=== PATIENT | female | born 1975 | race Caucasian/White ===

== ENCOUNTER 2019-11-13 17:35 | Observation (INO) ==
[~2019-11-13 17:35] MED LIST: 0.9 % Sodium Chloride 500 ML IV SCH; GI Cocktail 40 ML EACH PO ONE; Isovue-370 500 ML BOTTLE IVP ONE; Ketorolac 30 MG/ML VIAL IVP ONE
[2019-11-14] MEDS ORDERED: *HR* FentaNYL (PF) 100 MCG/2 ML VIAL ONE ×2 (09:31→14:07)
[2019-11-14] MEDS ORDERED: *HR* Propofol 200 MG/20 ML VIAL IVP ONE ×2 (09:31→09:32)
[2019-11-14] MEDS ORDERED: *HR* Midazolam HCl 2 MG/2 ML VIAL ONE (09:31)
[2019-11-14] MEDS ORDERED: Ondansetron 4 MG/2 ML VIAL ONE (09:35)
[2019-11-14] MEDS ORDERED: Lidocaine HCL 4 ML Topical Solution (Laryng-O-Jet Kit Sterile Pak) TP ONE (09:35)
[2019-11-14] MEDS ORDERED: Lidocaine -MPF 2% 2 ML VIAL ONE (09:35)
[2019-11-14] MEDS ORDERED: *HR* Rocuronium Bromide 50 MG/5 ML VIAL ONE (09:35)
[2019-11-14] MEDS ORDERED: *HR* Succinylcholine 200 MG/10 ML VIAL IVP ONE (09:35)
[2019-11-14] MEDS ORDERED: Piperacillin/Tazobactam 3.375 GM in 0.9 % Sodium Chloride Mini Bag 100 ML IVPB SCH ×2 (11:00→19:00)
[2019-11-14] MEDS ORDERED: 0.9 % Sodium Chloride 1,000 ML IVC SCH ×2 (11:15→15:38)
[2019-11-14] MEDS ORDERED: Famotidine 20 MG/2 ML VIAL ONE (13:17)
[2019-11-14] MEDS ORDERED: Acetaminophen IV 1,000 MG/100 ML BAG ONE (13:17)
[2019-11-14] MEDS ORDERED: Bupivacaine/EPI 1:200k 0.25%PF 30 ML VIAL ONE (13:49)
[2019-11-14] MEDS ORDERED: Bupivacaine/EPI 1:200k 0.5%PF 10 ML VIAL ONE (13:49)
[2019-11-14] MEDS ORDERED: Dexamethasone 4 MG/ML VIAL ONE (14:23)
[2019-11-14] MEDS ORDERED: *HR* Labetalol 20 MG/4 ML SYRINGE IVP ONE (14:30)
[2019-11-14] MEDS ORDERED: *HR* Promethazine 25 MG/ML VIAL IVP PRN ×2 (14:37→15:38)
[2019-11-14] MEDS ORDERED: *HR* OxyCODONE Immed Rel 5 MG TABLET PO PRN ×2 (14:37→15:38)
[2019-11-14] MEDS ORDERED: *HR* HYDROmorphone PF 0.5 MG/0.5 ML SYRINGE IVP PRN ×2 (14:37→15:38)
[2019-11-14] MEDS ORDERED: Ondansetron 4 MG/2 ML VIAL IVP ONE ×2 (14:37→15:38)
[2019-11-14] MEDS ORDERED: *HR* HYDROMORPHONE 2 MG/ML VIAL ONE (14:41)
[2019-11-14] MEDS ORDERED: *HR* OxyCODONE/APAP 5/325 TABLET PO PRN ×2 (14:53→15:38)
[2019-11-14 18:48] VITALS: BP 153/92
== END 2019-11-14 18:26 | disposition home or self-care (01) ==
LOC: 3ANU
PROVIDERS: ADMIT Surgery; ATTEND Surgery